=== PATIENT | male | born 1970 | race Caucasian/White ===

== ENCOUNTER 2016-12-09 16:09 | Observation (INO) | payer OTHER ==
[2016-12-09] MEDS ORDERED: NITROGLYCERIN OINT 1 INCH/GM PACKET TOPICAL STA (16:50)
[2016-12-09] MEDS ORDERED: SODIUM CHLORIDE 0.9% 1,000 ML IV STA (16:50)
[2016-12-09] MEDS ORDERED: ASPIRIN 81 MG PO STA (16:50)
[2016-12-09 17:19] LABS: Basophils # (A) 0.1 k/uL (0-0.2); Basophils % (A) 0 %; CH 32.3; CHCM 35.5; Eosinophils % (A) 0 %; HCT 43.9 % (39.0-53.0); HDW 2.38; HGB 15.1 gm/dL (13.0-17.5); Luc # (Auto) 0.14; Luc % (Auto) 1; Lymphocytes # (A) 2.6 k/uL (1.0-4.8); Lymphocytes % (A) 24 %; MCH 31.4 pg (25.0-35.0); MCHC 34.3 g/dL (31.0-37.0); MCV 91.5 fL (80.0-100.0); Mean Platelet Volume 7.7; Monocytes # (A) 0.4 k/uL (0-1.0); Monocytes % (A) 3 %; Neutrophils % (A) 72 %; RBC 4.79 m/uL (4.30-5.90); RDW 13.9 % (11.5-15.5); WBC 11.2 k/uL (3.8-10.6); WBC (Perox) 11.16
[2016-12-09 17:34] LABS: INR 0.9 (<1.2); Partial Thromboplastin Time 22.3 sec (22.0-30.0); Prothrombin Time 9.7 sec (9.0-12.0)
[2016-12-09 17:35] LABS: ALT 91 U/L (21-72); AST 68 U/L (17-59); Alkaline Phosphatase 104 U/L (38-126); Anion Gap 15 mmol/L; Blood Urea Nitrogen 16 mg/dL (9-20); Calcium 9.8 mg/dL (8.4-10.2); Carbon Dioxide 20 mmol/L (22-30); Chloride 101 mmol/L (98-107); Glucose 199 mg/dL (74-99); Magnesium 1.8 mg/dL (1.6-2.3); Non-African American GFR(MDRD) >60 (>60 ml/min/1.73 sqM); Potassium 4.4 mmol/L (3.5-5.1); Sodium 136 mmol/L (137-145); Total Bilirubin 0.5 mg/dL (0.2-1.3); Total Protein 7.3 g/dL (6.3-8.2)
[2016-12-09 17:41] LABS: Creatine Kinase 165 U/L (55-170)
--- NOTE | 2016-12-09 17:51 | XR ---
EXAMINATION TYPE: XR chest 2V DATE OF EXAM: 12/09/2016 COMPARISON: 08/29/2009 HISTORY: Chest pain TECHNIQUE: Frontal and lateral views of the chest are obtained. FINDINGS: Heart and mediastinum are normal. Lungs are clear. Costophrenic angles are clear. There ar e chest leads. Bony thorax is intact. IMPRESSION: Normal chest. No change.
[2016-12-09 17:53] LABS: Creatine Kinase MB 1.4 ng/mL (0.0-2.4); Troponin I <0.012 ng/mL (0.000-0.034)
[2016-12-09] MEDS ORDERED: MORPHINE SULFATE 2 MG/ML SYRINGE IVP PRN (18:56)
[2016-12-09] MEDS ORDERED: NITROGLYCERIN SL TABS 0.4 MG TAB SUBLINGUAL PRN (18:56)
[2016-12-09] MEDS ORDERED: HEPARIN SODIUM,PORCINE 5,000 UNIT/ML 1 ML VIAL IV ONE (18:56)
--- NOTE | 2016-12-09 18:56 | ED ---
Chest Pain HPI - General Chief Complaint: Chest Pain Stated Complaint: chest pain Time Seen by Provider: 12/09/16 16:32 Source: patient Mode of arrival: ambulatory Limitations: no limitations - History of Present Illness Initial Comments: 46 years old male has ongoing chest pain for last 10 years is on and off and got worse today about 5 hours ago all of a sudden he got very sweaty and he felt though he has no chest pain right now no shortness of breath at this point today's no pleuritic chest pain either denies any nausea no vomiting he was at work when it happened. He denies any heart disease he doesn't blood pressure denies any diabetes no tobacco use. Does drink daily 6-8 beers and family history is also unremarkable on remarkable for heart disease. He denies any headaches no neck stiffness no pleuritic chest pain but he does he have a chest pain 5 hours ago he was quite bad no shortness of breath no abdominal pain no frequency urgency dysuria no sinus symptoms of TIA or CVA - Related Data Home Medications Medication Instructions Recorded Confirmed Acyclovir [Zovirax] 800 mg PO BID 12/09/16 12/09/16 Aspirin EC [Ecotrin Low Dose] 81 mg PO DAILY 12/09/16 12/09/16 Atenolol [Tenormin] 25 mg PO DAILY 12/09/16 12/09/16 Atorvastatin [Lipitor] 20 mg PO HS 12/09/16 12/09/16 Cholecalciferol [Vitamin D3] 1,000 unit PO DAILY 12/09/16 12/09/16 Lisinopril-Hctz 20-12.5 mg 1.5 tab PO DAILY 12/09/16 12/09/16 [Zestoretic 20-12.5] [place]-3 Fatty Acids/Fish Oil [Fish 1 cap PO DAILY 12/09/16 12/09/16 Oil 1,000 mg Softgel] Ubidecarenone [Co Q-10] 100 mg PO DAILY 12/09/16 12/09/16 Allergies Allergy/AdvReac Type Severity Reaction Status Date / Time No Known Allergies Allergy Verified 12/09/16 16:33 Review of Systems ROS Statement: Those systems with pertinent positive or pertinent negative responses have been documented in the HPI. ROS Other: All systems not noted in ROS Statement are negative. EKG Findings - EKG Comments: EKG Findings:: EKG is normal sinus rhythm ventricular rate is 95 UT interval is 174 QRS duration is 100 QT/QTC 348/447 review of this EKG reveals inverted T waves in lead [address] elevation or ST depression noticed the rest of EKG Past Medical History Past Medical History: Hyperlipidemia, Hypertension History of Any Multi-Drug Resistant Organisms: None Reported Additional Past Surgical History / Comment(s): hydrocel Past Psychological History: No Psychological Hx Reported Smoking Status: Former smoker Past Alcohol Use History: Daily Past Drug Use History: Marijuana General Exam - General Exam Comments Initial Comments: General: The patient is awake and alert, in no distress, and does not appear acutely ill. Skin: Skin is warm and dry and no rashes or lesions are noted. Eye: Pupils are equal, round and reactive to light, extra-ocular movements are intact; there is normal conjunctiva bilaterally. Ears, nose, mouth and throat: There are moist mucous membranes and no oral lesions. Neck: The neck is supple, there is no tenderness or JVD. Cardiovascular: There is a regular rate and rhythm. No murmur, rub or gallop is appreciated. Respiratory: To auscultation bilateral, no wheezing no rhonchi no distress respiratory gonzalez noticed Gastrointestinal: Soft, non-distended, non-tender abdomen without masses or organomegaly noted. There is no rebound or guarding present. Bowel sounds are unremarkable. Back: There is no tenderness to palpation in the midline. There is no obvious deformity. Musculoskeletal: Normal ROM, no tenderness, There is no pedal edema. There is no calf tenderness or swelling. No cords were appreciated. Neurological: CN II-XII intact, Cranial nerves III through XII are intact. There are no obvious motor or sensory deficits. Coordination appears grossly intact. Speech is normal. Psychiatric: Cooperative, appropriate mood & affect, normal judgment. Limitations: no limitations Course Vital Signs 12/09/16 12/09/16 16:11 17:27 Temperature 98.3 F Pulse Rate 95 93 Respiratory 18 21 Rate Blood Pressure 138/80 132/70 O2 Sat by Pulse 99 97 Oximetry Patient was reassessed at 1845, he is still pain-free is labs are as follows CBC , INR, compressive metabolic panel all negative except respiratory 188 AST is 68 and ALT is 71 he does drink 6 beers everyday troponin is negative EKG is unremarkable chest x-ray is unremarkable considering his ongoing chest pain and his risk factors I recommended that he ought to be observed in the hospital for 3 sets of cardiac markers and cardiology consult he agreed ( Disposition Clinical Impression: Chest pain Disposition: ADMITTED IP TO THIS HOSP Condition: Good Referrals: Kenney Bonilla MD [Primary Care Provider] - 1-2 days
[2016-12-09] MEDS ORDERED: SODIUM CHLORIDE 0.9% 1,000 ML IV SCH (19:00)
[2016-12-09] MEDS ORDERED: HEPARIN SODIUM,PORCINE/D5W PMX 25,000 UNIT in DEXTROSE/WATER 1 500ML.BAG IV SCH (19:00)
[2016-12-09 20:15] VITALS: RESP 18
[2016-12-09] MEDS ORDERED: ATORVASTATIN 40 MG TAB PO SCH (21:00)
[2016-12-09 23:29] LABS: Creatine Kinase 132 U/L (55-170)
[2016-12-09 23:43] LABS: Troponin I <0.012 ng/mL (0.000-0.034)
[2016-12-10 03:31] LABS: Cholesterol 196 mg/dL (<200); HDL Cholesterol 53 mg/dL (40-60)
[2016-12-10 03:40] LABS: Creatine Kinase 125 U/L (55-170)
[2016-12-10 03:53] LABS: Creatine Kinase MB 0.9 ng/mL (0.0-2.4); Troponin I <0.012 ng/mL (0.000-0.034)
[2016-12-10 07:50] VITALS: PULSE 69
[2016-12-10] MEDS ORDERED: ASPIRIN 325 MG TAB PO SCH (09:00)
[2016-12-10] MEDS ORDERED: ATORVASTATIN 20 MG TAB PO SCH ×2 (09:00→21:00)
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
[2016-12-10] MEDS ORDERED: LISINOPRIL-HCTZ 20-12.5 MG 1 EACH TAB PO STA (10:20)
[2016-12-10] MEDS ORDERED: ATENOLOL 25 MG TAB PO STA (10:21)
[2016-12-10] MEDS ORDERED: CHOLECALCIFEROL 1,000 UNIT TAB PO SCH (10:30)
[2016-12-10] MEDS ORDERED: ACYCLOVIR 800 MG TAB PO ONE (10:30)
--- NOTE | 2016-12-10 10:57 | ECHOF ---
Referral Reason:chest pain MEASUREMENTS -------- HEIGHT: 177.8 cm WEIGHT: 93.4 kg BP: 131/70 RVIDd: 3.1 cm (< 3.3) IVSd: 1.2 cm (0.6 - 1.1) LVIDd: 4.3 cm (3.9 - 5.3) LVPWd: 1.1 cm (0.6 - 1.1) IVSs: 1.8 cm LVIDs: 2.6 cm LVPWs: 1.8 cm LA Diam: 3.1 cm (2.7 - 3.8) LAESV Index (A-L): 12.73 ml/m Ao Diam: 3.5 cm (2.0 - 3.7) AV Cusp: 2.5 cm (1.5 - 2.6) MV EXCURSION: 18.221 mm (> 18.000) MV EF SLOPE: 118 mm/s (70 - 150) EPSS: 0.3 cm MV E King: 0.81 m/s MV DecT: 259 ms MV A King: 0.77 m/s MV E/A Ratio: 1.06 FINDINGS -------- Sinus rhythm. This was a technically good study. The left ventricular size is normal. There is borderline concentric left ventricular hypertrophy. Overall left ventricular systolic function is normal with, an EF between 55 - 60 %. The right ventricle is normal in size. Normal LA size by volume 22+/-6 ml/m2. The right atrium is normal in size. The aortic valve is trileaflet and appears structurally normal. The mitral valve is normal. The tricuspid valve appears structurally normal. Trace/mild (physiologic) pulmonic regurgitation. The aortic root size is normal. Normal inferior vena cava with normal inspiratory collapse consistent with estimated right atrial pressure of 5 mmHg. There is no pericardial effusion. CONCLUSIONS -------- 1. Sinus rhythm. 2. The mitral valve is normal. 3. The tricuspid valve appears structurally normal. 4. Trace/mild (physiologic) pulmonic regurgitation. 5. The aortic root size is normal. 6. Normal inferior vena cava with normal inspiratory collapse consistent with estimated right atrial pressure of 5 mmHg. 7. There is no pericardial effusion. 8. This was a technically good study. 9. The left ventricular size is normal. 10. There is borderline concentric left ventricular hypertrophy. 11. Overall left ventricular systolic function is normal with, an EF between 55 - 60 %. 12. The right ventricle is normal in size. 13. Normal LA size by volume 22+/-6 ml/m2. 14. The right atrium is normal in size. 15. The aortic valve is trileaflet and appears structurally normal. [employer] INSTRUCTOR: Venus Bach RDCS
[2016-12-10 11:36] VITALS: BP 139/73; TEMP 98.6
--- NOTE | 2016-12-10 13:19 | EST ---
EXERCISE STRESS DATE OF SERVICE: 12/10/2016 AGE: 46 SEX: Male HT: 70" WT: 206 pounds PROTOCOL: Tyler STAGE: III DURATION OF EXERCISE: 8 minutes HEART RATE REST: 87 BLOOD PRESSURE REST: 131/70 MAXIMUM HEART RATE ACHIEVED: 148 MAXIMUM BLOOD PRESSURE: 195/62 85% MPHR: 147 100% MPHR: 173 METS: 9.7 INDICATIONS: Chest pain. Baseline EKG revealed a normal sinus rhythm without significant ST-T changes. Patient walked for 8 minutes on a standard Tyler protocol. Achieved a maximal heart rate of 148 beats per minute, which is 85% of predicted maximal. He developed fatigue and shortness of breath, but did not have any angina or arrhythmia. EKG did not reveal any ST-segment changes to indicate ischemia. By EKG criteria, this is a negative stress test with fair exercise capacity. The patient did not have any significant symptoms or any significant arrhythmia or angina. MANJINDER / MIGUELN: [id number] /
--- NOTE | 2016-12-10 15:39 | P.DS ---
Providers Date of admission: 12/09/16 18:56 Attending physician: Blair Meehan Consults: 12/09/16 18:56 Consult Physician Urgent Consulting Provider: [place] Consult Reason/Comments: Chest pain Do you want consulting provider notified?: Yes Primary care physician: Kenney Wilburn [facility] Course: Please refer to HPI for further details Patient Condition at Discharge: Good Plan - Discharge Summary New Discharge Prescriptions: New Omeprazole [PriLOSEC] 40 mg PO AC-BRKFST #14 capsule.dr Continue Ubidecarenone [Co Q-10] 100 mg PO DAILY [employer]-3 Fatty Acids/Fish Oil [Fish Oil 1,000 mg Softgel] 1 cap PO DAILY Cholecalciferol [Vitamin D3] 1,000 unit PO DAILY Atorvastatin [Lipitor] 20 mg PO HS Atenolol [Tenormin] 25 mg PO DAILY Aspirin EC [Ecotrin Low Dose] 81 mg PO DAILY Acyclovir [Zovirax] 800 mg PO BID Changed Lisinopril-Hctz 20-12.5 mg [Zestoretic 20-12.5] 1 tab PO DAILY #0 Discharge Medication List Acyclovir [Zovirax] 800 mg PO BID 12/09/16 [History] Aspirin EC [Ecotrin Low Dose] 81 mg PO DAILY 12/09/16 [History] Atenolol [Tenormin] 25 mg PO DAILY 12/09/16 [History] Atorvastatin [Lipitor] 20 mg PO HS 12/09/16 [History] Cholecalciferol [Vitamin D3] 1,000 unit PO DAILY 12/09/16 [History] [employer]-3 Fatty Acids/Fish Oil [Fish Oil 1,000 mg Softgel] 1 cap PO DAILY [History] Ubidecarenone [Co Q-10] 100 mg PO DAILY 12/09/16 [History] Lisinopril-Hctz 20-12.5 mg [Zestoretic 20-12.5] 1 tab PO DAILY #0 12/10/16 [Rx] Omeprazole [PriLOSEC] 40 mg PO AC-BRKFST #14 capsule. 12/10/16 [Rx] Follow up Appointment(s)/Referral(s): Abhishek Avila MD [STAFF PHYSICIAN] - 12/22/16 8:30 am (Appointment made for Dec.22 @8:30am.) Kenney Bonilla MD [Primary Care Provider] - 3 Days Patient Instructions/Handouts: Chest Pain (GEN) Discharge Disposition: HOME SELF-CARE
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
[2016-12-10] MEDS ORDERED: ACYCLOVIR 800 MG TAB PO SCH (21:00)
[2016-12-11] MEDS ORDERED: NON-FORMULARY DRUG (Omega-3 Fatty Acids/Fish Oil [Fish Oil 1,000 Mg Softgel] 1 CAP) PO SCH (09:00)
[2016-12-11] MEDS ORDERED: ATENOLOL 25 MG TAB PO SCH (09:00)
[2016-12-11] MEDS ORDERED: NON-FORMULARY DRUG (Ubidecarenone [Co Q-10] 100 MG) PO SCH (09:00)
[2016-12-11] MEDS ORDERED: LISINOPRIL-HCTZ 20-12.5 MG 1 EACH TAB PO SCH (09:00)
[2016-12-11] MEDS ORDERED: CHOLECALCIFEROL 1,000 UNIT TAB PO SCH (09:00)
== END 2016-12-10 14:35 | disposition home or self-care (01) ==
LOC: EC 16:09 → 3OBS 18:56
PROVIDERS: ADMIT Hospitalist; ATTEND Hospitalist
DX: R07.89 Other chest pain (principal); K70.10 Alcoholic hepatitis without ascites; D72.829 Elevated white blood cell count, unspecified; E78.5 Hyperlipidemia, unspecified; I10 Essential (primary) hypertension; J45.909 Unspecified asthma, uncomplicated; R61 Generalized hyperhidrosis; R42 Dizziness and giddiness; K20.9 Esophagitis, unspecified; R11.0 Nausea; F10.20 Alcohol dependence, uncomplicated; F12.90 Cannabis use, unspecified, uncomplicated; Z87.891 Personal history of nicotine dependence; Z79.82 Long term (current) use of aspirin; Z79.899 Other long term (current) drug therapy; Z82.49 Family history of ischemic heart disease and other diseases of the circulatory system; E66.9 Obesity, unspecified; Z68.29 Body mass index [BMI] 29.0-29.9, adult
CPT/HCPCS: 99285; 96374; 36415; 93005; 93017; 93306; 83880; 80061; 80053; 82550 ×2; 82553 ×2; 83735; 84484 ×2; 85025; 85610; 85730 ×2; 71020; G0378 ×2; J1644 ×2

== ENCOUNTER → 2016-12-28 | Outpatient (CLI) | payer OTHER ==
[2016-12-28 07:29] LABS: ALT 103 U/L (21-72); AST 68 U/L (17-59); Cholesterol 193 mg/dL (<200); Creatine Kinase 163 U/L (55-170); HDL Cholesterol 52 mg/dL (40-60)
== END | disposition home or self-care (01) ==
LOC: LABWHC1 06:42
PROVIDERS: ATTEND Internal Medicine Interventional Cardiology
DX: E78.5 Hyperlipidemia, unspecified (principal)
CPT/HCPCS: 36415; 80061; 82550; 84450; 84460

== ENCOUNTER 2018-05-07 16:30 | Inpatient (IN) | payer OTHER ==
[2018-05-07] MEDS ORDERED: MORPHINE SULFATE 4 MG/ML SYRINGE IV STA (17:39)
[2018-05-07] MEDS ORDERED: ONDANSETRON ODT 8 MG TAB.RAPDIS PO STA (17:39)
[2018-05-07] MEDS ORDERED: SODIUM CHLORIDE 0.9% 1,000 ML IV STA ×2 (17:39)
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
[2018-05-07 17:54] LABS: Basophils % (A) 0 %; Eosinophils # (A) 0.1 k/uL (0-0.7); Eosinophils % (A) 1 %; HGB 14.7 gm/dL (13.0-17.5); Lymphocytes # (A) 2.2 k/uL (1.0-4.8); Lymphocytes % (A) 13 %; MCH 30.2 pg (25.0-35.0); MCHC 32.6 g/dL (31.0-37.0); MCV 92.6 fL (80.0-100.0); Mean Platelet Volume 7.2; Monocytes # (A) 0.6 k/uL (0-1.0); Monocytes % (A) 3 %; Neutrophils # (A) 14.4 k/uL (1.3-7.7); Neutrophils % (A) 83 %; Platelet Count 278 k/uL (150-450); RBC 4.86 m/uL (4.30-5.90); RDW 13.2 % (11.5-15.5); WBC 17.4 k/uL (3.8-10.6)
[2018-05-07 18:06] LABS: ALT 102 U/L (21-72); AST 66 U/L (17-59); Albumin 4.6 g/dL (3.5-5.0); Alkaline Phosphatase 108 U/L (38-126); Anion Gap 11 mmol/L; Blood Urea Nitrogen 19 mg/dL (9-20); Calcium 10.1 mg/dL (8.4-10.2); Carbon Dioxide 25 mmol/L (22-30); Chloride 100 mmol/L (98-107); Glucose 136 mg/dL (74-99); Lipase 122 U/L (23-300); Potassium 4.3 mmol/L (3.5-5.1); Sodium 136 mmol/L (137-145); Total Bilirubin 0.9 mg/dL (0.2-1.3); Total Protein 7.6 g/dL (6.3-8.2)
[2018-05-07 18:09] LABS: INR 0.9 (<1.2); Partial Thromboplastin Time 21.9 sec (22.0-30.0); Prothrombin Time 9.5 sec (9.0-12.0)
--- NOTE | 2018-05-07 20:02 | CT ---
EXAMINATION TYPE: CT abdomen pelvis w con DATE OF EXAM: 05/07/2018 COMPARISON: None INDICATION: Lower abdominal pain and blood in stool. DLP: 1058.7 mGycm, Automated exposure control for dose reduction was used. CONTRAST: 100ml mL of Isovue 300. Study performed without Oral Contrast TECHNIQUE: Axial images were obtained from above the diaphragm to the pubic rami in the axial plane a t 5 mm thick sections. Reconstructed images are reviewed on the computer in the coronal plane. FINDINGS: Limited CT sections are obtained the lung bases. The lung bases are clear. CT ABDOMEN: Liver: Normal Spleen: Normal Pancreas: Normal Adrenal glands: The adrenal glands are normal. Gallbladder: Normal Kidneys: No masses are evident. No hydronephrosis is present. No cysts are present. Delayed images were obtained through the kidneys, which remain unremarkable. Aorta: Normal Inferior vena cava: Normal. CT PELVIS: There is diffuse thickening of the distal transverse colon which extends through the descending colon to the mid sigmoid colon region. Inflammatory changes are adjacent to these levels. Findings are com patible with colitis. There are some diverticular changes within the sigmoid colon adjacent. Some mil d diverticulitis may be present. Colitis is favored however given the additional inflammatory changes adjacent to nondiverticular loops of bowel. Descending colon appears unremarkable. The appendix is n ormal. Small bowel loops appear normal without evidence of dilatation. Rectosigmoid region appears wi thin normal limits. Urinary bladder is unremarkable Prostate is normal. Osseous structures: No suspicious lytic or sclerotic lesions. IMPRESSIONS: 1. Long segment of thickened distal transverse colon, descending colon, and proximal sigmoid colon w ith adjacent inflammatory changes most compatible with colitis. 2. There are some scattered diverticuli within the colon away from the areas of inflammatory change s uggesting cholelithiasis more likely than diverticulitis.
[2018-05-07 20:10] LABS: Appearance,Urine Clear (Clear); Bilirubin,Urine Negative (Negative); Blood,Urine Negative (Negative); Color,Urine Light Yellow; Glucose,Urine (UA) Negative (Negative); Ketones,Urine Negative (Negative); Leukocyte Esterase,Urine Negative (Negative); Nitrite,Urine Negative (Negative); Protein,Urine Negative (Negative); Specific Gravity,Urine 1.043 (1.001-1.035); Urobilinogen,Urine <2.0 mg/dL (<2.0)
[2018-05-07] MEDS ORDERED: ONDANSETRON 4 MG/2 ML VIAL IVP PRN (21:21)
[2018-05-07] MEDS ORDERED: NALOXONE 0.4 MG/ML 1 ML VIAL IV PRN (21:21)
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
[2018-05-07] MEDS: LACTATED RINGERS 1,000 ML IV SCH (23:09)
[2018-05-07] MEDS: CIPROFLOXACIN/DEXTROSE PMX 400 MG in DEXTROSE/WATER 1 200ML.BAG IVPB SCH (23:09)
[2018-05-07] MEDS: metroNIDAZOLE-NS PMX 500 MG in SALINE 1 100ML.BAG IVPB SCH (23:10)
[2018-05-07] MEDS: LISINOPRIL-HCTZ 20-12.5 MG 1 EACH TAB PO SCH (23:10)
[2018-05-07 23:26] VITALS: BMI 25.4
[2018-05-07] MEDS: MORPHINE SULFATE 4 MG/ML SYRINGE IV PRN (23:46)
[2018-05-08 07:43] LABS: Basophils % (A) 0 %; Eosinophils # (A) 0.1 k/uL (0-0.7); Eosinophils % (A) 1 %; HCT 41.1 % (39.0-53.0); HGB 13.6 gm/dL (13.0-17.5); Lymphocytes # (A) 2.7 k/uL (1.0-4.8); Lymphocytes % (A) 19 %; MCH 31.5 pg (25.0-35.0); MCHC 33.1 g/dL (31.0-37.0); MCV 95.3 fL (80.0-100.0); Monocytes # (A) 0.7 k/uL (0-1.0); Monocytes % (A) 5 %; Neutrophils # (A) 10.3 k/uL (1.3-7.7); Neutrophils % (A) 74 %; Platelet Count 218 k/uL (150-450); RBC 4.31 m/uL (4.30-5.90); RDW 13.2 % (11.5-15.5)
[2018-05-08 07:57] LABS: Anion Gap 7 mmol/L; Blood Urea Nitrogen 14 mg/dL (9-20); Calcium 8.7 mg/dL (8.4-10.2); Carbon Dioxide 25 mmol/L (22-30); Chloride 102 mmol/L (98-107); Glucose 111 mg/dL (74-99); Sodium 134 mmol/L (137-145)
[2018-05-08] MEDS: metroNIDAZOLE-NS PMX 500 MG in SALINE 1 100ML.BAG IVPB SCH ×2 (08:56→15:21)
[2018-05-08] MEDS: ATENOLOL 25 MG TAB PO SCH (08:56)
[2018-05-08] MEDS: LACTATED RINGERS 1,000 ML IV SCH ×3 (08:56→22:14)
[2018-05-08] MEDS: MORPHINE SULFATE 4 MG/ML SYRINGE IV PRN ×3 (09:02→19:14)
[2018-05-08] MEDS: CIPROFLOXACIN/DEXTROSE PMX 400 MG in DEXTROSE/WATER 1 200ML.BAG IVPB SCH ×2 (10:04→22:13)
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
--- NOTE | 2018-05-08 16:46 | PN ---
PROGRESS NOTE DATE OF SERVICE: May 08, 2018. PRESENT COMPLAINT: Abdominal pain. INTERVAL HISTORY: This patient admitted with acute colitis, felt to be ischemic as it is left-sided. Had some pain this morning and small amount of bloody stool, but overall feeling much better. The patient had been n.p.o., seen by GI earlier, started on clear liquids. Overall, patient feels a bit better. REVIEW OF SYSTEMS: Done for constitutional, cardiovascular, GI, pulmonary; relevant findings as above. CURRENT MEDICATIONS: Reviewed include IV ciprofloxacin and IV Flagyl. Also getting IV fluids. PHYSICAL EXAMINATION: VITAL SIGNS: Temperature 98.2, pulse 84, respiration 17, blood pressure 124/66, pulse ox 96 percent. GENERAL APPEARANCE: Sitting on bed, tired appearing. EYES: Pupils are equal. Conjunctivae normal. NECK: JVD not raised. Mass not palpable. Respiratory effort normal. LUNGS are clear. CARDIOVASCULAR: First and second sounds normal. No edema. ABDOMEN: Decreased tenderness. No guarding or rigidity. Liver and spleen not palpable. PSYCHIATRY: Alert and oriented x3. Mood and affect normal. INVESTIGATIONS: White count 14, hemoglobin 13.6, potassium 5. Lactic acid down to 1.4. ASSESSMENT: 1. Acute ischemic colitis, likely affecting the left side with clinical improvement. 2. Essential hypertension. 3. Hyperlipidemia. 4. Gastroesophageal reflux disease. 5. Obesity, BMI 30.4. 6. Acute lactic acidosis likely type 2 on presentation. PLAN: Continue IV antibiotics. Patient was started on clear liquids. Encouraged to ambulate. Abdominal pain is much improved. Follow. MMODL / IJN: [id number] /
[2018-05-08] MEDS ORDERED: ATORVASTATIN 20 MG TAB PO SCH (21:00)
[2018-05-08] MEDS: LISINOPRIL-HCTZ 20-12.5 MG 1 EACH TAB PO SCH (22:14)
[2018-05-09] MEDS: MORPHINE SULFATE 4 MG/ML SYRINGE IV PRN (00:04)
[2018-05-09] MEDS: metroNIDAZOLE-NS PMX 500 MG in SALINE 1 100ML.BAG IVPB SCH ×2 (00:08→08:52)
[2018-05-09 08:09] LABS: Basophils # (A) 0.1 k/uL (0-0.2); Basophils % (A) 1 %; Eosinophils # (A) 0.2 k/uL (0-0.7); Eosinophils % (A) 2 %; HCT 36.2 % (39.0-53.0); HGB 12.2 gm/dL (13.0-17.5); Lymphocytes # (A) 2.7 k/uL (1.0-4.8); Lymphocytes % (A) 24 %; MCH 32.1 pg (25.0-35.0); MCHC 33.8 g/dL (31.0-37.0); MCV 95.1 fL (80.0-100.0); Mean Platelet Volume 8.6; Monocytes # (A) 0.5 k/uL (0-1.0); Monocytes % (A) 4 %; Neutrophils # (A) 7.8 k/uL (1.3-7.7); Neutrophils % (A) 69 %; Platelet Count 192 k/uL (150-450); RBC 3.81 m/uL (4.30-5.90); RDW 13.4 % (11.5-15.5); WBC 11.4 k/uL (3.8-10.6)
[2018-05-09 08:36] LABS: Anion Gap 5 mmol/L; Blood Urea Nitrogen 10 mg/dL (9-20); Calcium 8.6 mg/dL (8.4-10.2); Carbon Dioxide 28 mmol/L (22-30); Chloride 101 mmol/L (98-107); Glucose 102 mg/dL (74-99); Potassium 4.1 mmol/L (3.5-5.1); Sodium 134 mmol/L (137-145)
[2018-05-09] MEDS: LACTATED RINGERS 1,000 ML IV SCH ×2 (08:51→14:06)
[2018-05-09] MEDS: ATENOLOL 25 MG TAB PO SCH (08:52)
[2018-05-09] MEDS: CIPROFLOXACIN/DEXTROSE PMX 400 MG in DEXTROSE/WATER 1 200ML.BAG IVPB SCH (09:57)
--- NOTE | 2018-05-09 13:59 | P.DS ---
Providers Date of admission: 05/07/18 21:27 Attending physician: Domo Shannon Consults: 05/07/18 21:57 Consult Physician Routine Consulting Provider: Gabriela Pan Consult Reason/Comments: colitis acute Do you want consulting provider notified?: Yes Primary care physician: Kenney Bonilla [facility] Course: 47-year-old pleasant male was admitted secondary to colitis diverticulitis, ulcerative colitis cannot be ruled out patient will undergo colonoscopy as an outpatient patient is still waiting for ischemic colitis but his symptoms are actually consistent with ischemic colitis with bloody stools patient is comparing of left lower quadrant pain which is significant improved compared to yesterday patient will be treated for infectious colitis and follow-up as an outpatient with gastroenterology for colonoscopy. Patient will be discharged on metronidazole and ciprofloxacin for 7 more days. Patient has asked to use soft diet during this time and the recommended high fiber diet after that. We will advance the diet today from clear liquid to soft and if he is able to tolerate without worsening pain patient will be discharged today.patient blood pressure is low because of which the eye decrease his angiotensin medication dose PHYSICAL EXAMINATION: GENERAL: The patient is alert and oriented x3, not in any acute distress. Well developed, well nourished. HEENT: Pupils are round and equally reacting to light. EOMI. No scleral icterus. No conjunctival pallor. Normocephalic, atraumatic. No pharyngeal erythema. No thyromegaly. CARDIOVASCULAR: S1 and S2 present. No murmurs, rubs, or gallops. PULMONARY: Chest is clear to auscultation, no wheezing or crackles. ABDOMEN: Soft, minimal tenderness in the left lower quadrant, nondistended, normoactive bowel sounds. No palpable organomegaly. MUSCULOSKELETAL: No joint swelling or deformity. EXTREMITIES: No cyanosis, clubbing, or pedal edema. NEUROLOGICAL: Gross neurological examination did not reveal any focal deficits. SKIN: No rashes. her other chronic medical problems and hospitalization course please refer to the progress note from Patient Condition at Discharge: Fair Plan - Discharge Summary Discharge Rx Participant: No New Discharge Prescriptions: New Ciprofloxacin HCl [Cipro] 500 mg PO Q12HR #14 tablet Lisinopril [Zestril] 10 mg PO DAILY #30 tab metroNIDAZOLE [Flagyl] 500 mg PO TID #20 tab Discontinued Lisinopril-Hctz 20-12.5 mg [Zestoretic 20-12.5] 1 tab PO DAILY #0 No Action Ubidecarenone [Co Q-10] 400 mg PO DAILY [facility] [facility]-3 Fatty Acids/Fish Oil [Fish Oil 1,000 mg Softgel] 1 cap PO DAILY Atorvastatin [Lipitor] 20 mg PO HS Atenolol [Tenormin] 25 mg PO DAILY Aspirin EC [Ecotrin Low Dose] 81 mg PO DAILY Ergocalciferol (Vitamin D2) [Vitamin D2] 50,000 unit PO ARNETT Magnesium Oxide 400 mg PO HS Discharge Medication List Aspirin EC [Ecotrin Low Dose] 81 mg PO DAILY 12/09/16 [History] Atenolol [Tenormin] 25 mg PO DAILY 12/09/16 [History] Atorvastatin [Lipitor] 20 mg PO HS 12/09/16 [History] [facility]-3 Fatty Acids/Fish Oil [Fish Oil 1,000 mg Softgel] 1 cap PO DAILY [History] Ubidecarenone [Co Q-10] 400 mg PO DAILY 12/09/16 [History] Ergocalciferol (Vitamin D2) [Vitamin D2] 50,000 unit PO ARNETT 05/07/18 [History] Magnesium Oxide 400 mg PO HS 05/07/18 [History] Ciprofloxacin HCl [Cipro] 500 mg PO Q12HR #14 tablet 05/09/18 [Rx] Lisinopril [Zestril] 10 mg PO DAILY #30 tab 05/09/18 [Rx] metroNIDAZOLE [Flagyl] 500 mg PO TID #20 tab 05/09/18 [Rx] Follow up Appointment(s)/Referral(s): Kenney Bonilla MD [Primary Care Provider] - 05/18/18 4:30 pm Lito Quesada MD [STAFF PHYSICIAN] - 05/23/18 11:00 am Discharge Disposition: HOME SELF-CARE
[2018-05-09 16:46] VITALS: BP 107/66; PULSE 77; RESP 16; TEMP 98
== END 2018-05-09 16:07 | disposition home or self-care (01) | DRG 394 ==
LOC: EC 16:30 → 4SSUR 21:27
PROVIDERS: ADMIT Hospitalist; ATTEND Hospitalist
DX: K55.031 Focal (segmental) acute (reversible) ischemia of large intestine (principal); A09 Infectious gastroenteritis and colitis, unspecified; E87.2 Acidosis; K57.92 Diverticulitis of intestine, part unspecified, without perforation or abscess without bleeding; E66.9 Obesity, unspecified; E78.5 Hyperlipidemia, unspecified; I10 Essential (primary) hypertension; J45.909 Unspecified asthma, uncomplicated; K21.9 Gastro-esophageal reflux disease without esophagitis; F40.240 Claustrophobia; Z68.30 Body mass index [BMI] 30.0-30.9, adult; Z79.82 Long term (current) use of aspirin; Z79.899 Other long term (current) drug therapy; Z87.891 Personal history of nicotine dependence; Z80.1 Family history of malignant neoplasm of trachea, bronchus and lung; Z82.49 Family history of ischemic heart disease and other diseases of the circulatory system
CPT/HCPCS: 36415; 74177; 80048; 80053; 81003; 83605; 83690; 85025; 85610; 85730; 87040; 96361; 96374; 99285

== ENCOUNTER → 2023-02-07 | Outpatient (CLI) | payer OTHER ==
--- NOTE | 2023-02-07 14:40 | MM ---
Reason for Exam: Clinical finding. Baseline mammogram. Prior Study Comparison: Patient's first Mammogram. No prior studies available for comparison. Tissue Density: The breast tissue is almost entirely fat. Findings: Analyzed By CAD. Prominent area of what appears to reflect fatty tissue at the site of clinical concern left breast. Ultrasound is recommended. No suspicious calcifications within either breast. Overall Assessment: Incomplete: need additional imaging evaluation, BI-RAD 0 Management: Diagnostic Breast Ultrasound of the left breast. . Results were given to the patient verbally at the time of exam. Patient should continue monthly self-breast exams. A clinical breast exam by your physician is recommended on an annual basis. This exam should not preclude additional follow-up of suspicious palpable abnormalities. Note on Nisa scores and lifetime risk: 1. A Nisa score greater than 3% is considered moderate risk. If this is the case, consider specialist referral to assess eligibility for a risk reducing agent. 2. If overall lifetime risk for the development of breast cancer is 20% or higher, the patient may qualify for future screening with alternating mammogram and breast MRI. Electronically signed and approved by: Efraín Smith M.D. Radiologis
--- NOTE | 2023-02-08 07:40 | USB ---
Reason for Exam: Clinical finding. Technique: Method: Targeted. Findings: The area of palpable concern of the left breast was scanned. At the site of clinical concern which corresponds to the left 9:00 breast 10 cm from the nipple there is a 2.0 x .8 cm lipoma. No concerning solid masses seen. Overall Assessment: Benign, BI-RAD 2 Management: Clinical Management of the left breast in 1 year. A clinical breast exam by your physician is recommended on an annual basis and results should be correlated with mammographic findings. This exam should not preclude additional follow-up of suspicious palpable abnormalities. Results were given to the patient verbally at the time of exam. Electronically signed and approved by: Efraín Smith M.D. Radiologis
== END | disposition home or self-care (01) ==
LOC: RADMAMWWP 14:15
PROVIDERS: ATTEND Family Medicine
DX: D24.2 Benign neoplasm of left breast (principal); N63.20 Unspecified lump in the left breast, unspecified quadrant; R92.313 Mammographic fatty tissue density, bilateral breasts
CPT/HCPCS: 77062; 77066

== ENCOUNTER → 2024-02-20 | Outpatient (CLI) | payer OTHER ==
--- NOTE | 2024-02-20 09:40 | USB ---
Reason for Exam: Follow-up at short interval from prior study. Technique: Method: Targeted. Prior Study Comparison: 02/07/2023 Bilateral MG 3D diag mammo w/cad [facility], [facility]. Findings: The area of palpable concern of the left breast, the axilla of the left breast and the retroareolar of the left breast were scanned. Targeted ultrasound of the patient's 9:00 palpable site. Additional scanning of the subareolar region and axilla. At 9:00, 8 cm from the nipple, there is redemonstration of a circumscribed isoechoic oval mass measuring 2.1 x 2.1 x 0.9 cm. Not significantly changed from 02/07/2023. No gynecomastia or axillary lymphadenopathy seen. Overall Assessment: Benign, BI-RAD 2 Management: Clinical Management of the left breast in 1 year. For findings which suggest a benign palpable lipoma left breast 9:00 position. Consider surgical evaluation if any growth is encountered or if the area becomes symptomatic. This exam should not preclude additional follow-up of suspicious palpable abnormalities. Results were given to the patient verbally at the time of exam. [facility], , 02/20/2024 9:37 AM. Electronically signed and approved by: Carri Mata M.D. Radiologist
--- NOTE | 2024-02-21 14:31 | US ---
EXAMINATION TYPE: US liver DATE OF EXAM: 02/20/2024 COMPARISON: NONE CLINICAL INDICATION: Male, 53 years old with history of [id number] ELEVATION OF LIVER LEVELS; elevated lab s, no symptoms TECHNIQUE: Grayscale and color Doppler imaging of the right upper quadrant was performed. FINDINGS: EXAM MEASUREMENTS: Liver Length: 20.2 cm Gallbladder Wall: 0.2 cm CBD: 0.5 cm Right Kidney: 11.6 x 5.3 x 6.8 cm Pancreas: wnl Liver: enlarged with focal fatty sparring seen near GB Gallbladder: wnl Evidence for sonographic Stearns's sign: no CBD: wnl Right Kidney: wnl IMPRESSION: Hepatomegaly with underlying hepatic steatosis and areas of focal fatty sparing. [facility], , 02/21/2024 2:29 PM
== END | disposition home or self-care (01) ==
LOC: RADUSWWP 08:49
PROVIDERS: ATTEND Family Medicine
DX: R74.01 Elevation of levels of liver transaminase levels (principal); N63.20 Unspecified lump in the left breast, unspecified quadrant
CPT/HCPCS: 76705